=== PATIENT | male | born 1935 | race Two or more races ===

== ENCOUNTER 2017-07-30 11:04 | Emergency (ER) | payer MEDICARE, OTHER ==
[~2017-07-30] VITALS: Ht 165.1 cm; Wt 70.3 kg
--- NOTE | 2017-07-30 11:10 | NUR ---
Dr Marquez at the bedside for eval and exam.
[2017-07-30] MEDS ORDERED: NEBI10TA2 PO (11:24)
[2017-07-30] MEDS ORDERED: LEVO88TA5 PO (11:24)
[2017-07-30] MEDS ORDERED: AMLO5TAB2 PO (11:24)
[2017-07-30] MEDS ORDERED: NAPR500T6 PO (11:24)
[2017-07-30 11:41] LABS: BASOPHILS % (AUTO) 0.6 % (0.0-2.0); EOSINOPHILS # (AUTO) 0.2 K/uL (0.0-0.7); EOSINOPHILS % (AUTO) 3.4 % (0.0-7.0); HEMATOCRIT 34.2 % (36.7-47.1); HEMOGLOBIN 11.4 g/dL (12.5-16.3); LYMPHOCYTES # (AUTO) 1.5 K/uL (20.0-40.0); LYMPHOCYTES % (AUTO) 20.6 % (20.5-51.5); MEAN CORPUSCULAR HEMOGLOBIN 32.7 uug (23.8-33.4); MEAN CORPUSCULAR HGB CONC 34 g/dL (32.5-36.3); MEAN CORPUSCULAR VOLUME 97.5 fL (73.0-96.2); MONOCYTES # (AUTO) 0.6 K/uL (2.0-10.0); MONOCYTES % (AUTO) 8.6 % (0.0-11.0); NEUTROPHILS # (AUTO) 4.8 K/uL (1.8-8.9); NEUTROPHILS % (AUTO) 66.8 % (38.5-71.5); PLATELET COUNT (AUTO) 166 K/uL (152-348); WHITE BLOOD COUNT (AUTO) 7.2 K/uL (3.6-10.2)
[2017-07-30 11:46] LABS: CARBON DIOXIDE 22 mmol/L (21-32); CHLORIDE 104 mmol/L (98-107); CREATININE 2.1 mg/dL (0.6-1.3); GLUCOSE 115 mg/dL (74-106); POTASSIUM 4.2 mmol/L (3.5-5.1); UREA NITROGEN, BLOOD 25 mg/dL (7-18)
[2017-07-30 12:02] LABS: ALANINE AMINOTRANSFERASE 23 U/L (16-63); ALKALINE PHOSPHATASE 75 U/L (50-136); ASPARTATE AMINOTRANSFERASE 22 U/L (15-37); BILIRUBIN,DIRECT 0.1 mg/dL (0.0-0.2); BILIRUBIN,TOTAL 0.5 mg/dL (0.2-1.0); TOTAL PROTEIN, SERUM 7.6 g/dL (6.4-8.2)
--- NOTE | 2017-07-30 12:04 | NUR ---
Pt is resting in bed, family at the bedside. VSS.
[2017-07-30 12:22] VITALS: BP 124/67
--- NOTE | 2017-07-30 12:23 | NUR ---
Patient discharged to home in stable conditon. Written and verbal after care instructions given. Patient verbalizes understanding of instructions.
== END 2017-07-30 12:23 | disposition home or self-care (01) ==
LOC: ER 11:04
DX: M10.9 Gout, unspecified (principal); J06.9 Acute upper respiratory infection, unspecified; I70.0 Atherosclerosis of aorta; E03.9 Hypothyroidism, unspecified; M19.90 Unspecified osteoarthritis, unspecified site
CPT/HCPCS: 36415; 70030-TC; 71045; 85025; 87040; 87400; 93005; A4663

== ENCOUNTER 2022-11-29 11:35 | Inpatient (IN) | payer BC, MEDICARE, OTHER ==
[~2022-11-29] VITALS: Ht 165.1 cm; Wt 65.8 kg
[~2022-11-29 11:35] MED LIST: AMLO-212 PO; LEVO88TA5 PO; NAPR500T6 PO; NEBI10TA2 PO
[2022-11-29] MEDS ORDERED: LORA10TA61 PO (12:03)
[2022-11-29] MEDS ORDERED: NIFE30TA2 PO (12:03)
[2022-11-29] MEDS ORDERED: ALLO100T PO (12:03)
[2022-11-29] MEDS ORDERED: SIMV-49 PO (12:03)
[2022-11-29] MEDS ORDERED: MULT-1196 PO (12:03)
[2022-11-29] MEDS ORDERED: TELM80TA2 PO (12:03)
[2022-11-29] MEDS ORDERED: HYDR-501 PO (12:03)
[2022-11-29] MEDS ORDERED: NIFE30TA91 PO (12:03)
--- NOTE | 2022-11-29 12:22 | NUR ---
Pt seen by for bedside eval. UA sent to lab. Blood work sent to lab. Safety measures in place. Will continue to monitor.
--- NOTE | 2022-11-29 12:26 | NUR ---
Pt taken for CT.
[2022-11-29 12:28] LABS: HEMATOCRIT 30.6 % (36.7-47.1); MEAN CORPUSCULAR HEMOGLOBIN 33.3 uug (23.8-33.4); MEAN CORPUSCULAR VOLUME 98.9 fL (73.0-96.2); PLATELET COUNT (AUTO) 201 K/uL (152-348)
--- NOTE | 2022-11-29 12:42 | NUR ---
weld technician performed X-ray scans.
[2022-11-29 12:44] LABS: ALANINE AMINOTRANSFERASE 24 U/L (16-63); ALKALINE PHOSPHATASE 131 U/L (50-136); ASPARTATE AMINOTRANSFERASE 14 U/L (15-37); BILIRUBIN,DIRECT 0.1 mg/dL (0.0-0.2); BILIRUBIN,TOTAL 0.3 mg/dL (0.2-1.0); CARBON DIOXIDE 23 mmol/L (21-32); CHLORIDE 106 mmol/L (98-107); CREATININE 2.5 mg/dL (0.6-1.3); GLUCOSE 76 mg/dL (74-106); POTASSIUM 4.9 mmol/L (3.5-5.1); TOTAL PROTEIN, SERUM 7.3 g/dL (6.4-8.2); UREA NITROGEN, BLOOD 43 mg/dL (7-18)
--- NOTE | 2022-11-29 12:50 | NUR ---
Received Pt's daughter's (Aranza) phone number: . Safety measures in place. Will continue to monitor.
[2022-11-29 13:15] LABS: *BILIRUBIN,URIN NEGATIVE (NEGATIVE); *BLOOD, URINE NEGATIVE (NEGATIVE); *CLARITY,URINE CLEAR (CLEAR); *COLOR,URINE YELLOW (YELLOW); *KETONES,URINE NEGATIVE (NEGATIVE); *UROBILINOGEN,URINE 0.2 E.U./dl (NORMAL); LEUKOCYTE ESTERASE ,URINE NEGATIVE (NEGATIVE); NITRITE, URINE NEGATIVE (NEGATIVE); UGLUCOSE NEGATIVE (NEGATIVE)
--- NOTE | 2022-11-29 14:02 | NUR ---
Received call from 3rd floor gas inspectorBrien GOTTI: pt will be going to Rm 305. Accepting Nurse is Stacy. Will call Stacy in approximately 15-20 min for report.
[2022-11-29 14:05] LABS: BACTERIA,URINE FEW /HPF (NONE SEEN); RBC,URINE NONE SEEN /HPF (0-3); WBC,URINE NONE SEEN /HPF (0-3)
--- NOTE | 2022-11-29 14:20 | NUR ---
Gave report to Stacy (PULPER).
--- NOTE | 2022-11-29 14:26 | NUR ---
Pt has been admitted to 305 in stable condition. Pt arrived in safely. All belongings are with Pt. Stacy is aware of Pt's arrival.
[2022-11-29 14:50] VITALS: BP 138/53
--- NOTE | 2022-11-29 14:56 | NUR ---
87 YEAR OLD MALE RECEIVED TO ROOM 305 FOR HYPERTENSION AND RENAL INSUFFICIENCY.PT DENIES ANY PAIN SOB.CALL LIGHT WITH IN REACH ORIENT THE PT TO ROOM MD NOTIFIED FOR THE ADMISSION
[2022-11-29] MEDS ORDERED: ACETAMINOPHEN 325 MG TABLET PO PRN (16:15)
[2022-11-29] MEDS ORDERED: ONDANSETRON 4 MG/2 ML VIAL IV PRN (16:15)
[2022-11-29] MEDS ORDERED: TEMAZEPAM 7.5 MG CAPSULE PO PRN (16:15)
[2022-11-29] MEDS: IV 1/2NS 1000 ML 1,000 ML IV PRN (16:34)
--- NOTE | 2022-11-29 18:23 | NUR ---
pt seen by the md ,at this time family at bed side all needs met we will continue to monitors
--- NOTE | 2022-11-29 20:00 | NUR ---
Received patient lying in bed AAOx4. In no apparent distress. IV intact and patent. Will continue plan of care
[2022-11-29 20:18] VITALS: BP 127/57
[2022-11-29] MEDS ORDERED: SIMVASTATIN 40 MG TABLET PO SCH (21:00)
[2022-11-29] MEDS ORDERED: DOCUSATE SODIUM 100 MG CAPSULE PO SCH (21:00)
[2022-11-29 23:40] VITALS: BP 146/76
[2022-11-30 04:31] VITALS: BP 125/52
[2022-11-30 06:44] LABS: HEMATOCRIT 28.2 % (36.7-47.1); MEAN CORPUSCULAR HEMOGLOBIN 33.8 uug (23.8-33.4); MEAN CORPUSCULAR VOLUME 98.9 fL (73.0-96.2); PLATELET COUNT (AUTO) 181 K/uL (152-348)
[2022-11-30] MEDS ORDERED: LEVOTHYROXINE SODIUM 100 MCG TABLET PO SCH (07:00)
[2022-11-30] MEDS ORDERED: LEVOTHYROXINE SODIUM 88 MCG TABLET PO SCH (07:00)
[2022-11-30] MEDS ORDERED: PANTOPRAZOLE SODIUM 40 MG TABLET.DR PO SCH (07:00)
--- NOTE | 2022-11-30 07:00 | NUR ---
Patient expressed concerns about reasoning of hospitalization. Had difficulty sleeping. Needs attended to and met. Continue plan of care
[2022-11-30 07:12] LABS: IRON, SERUM 75 ug/dL (50-175)
[2022-11-30 07:19] LABS: ALANINE AMINOTRANSFERASE 25 U/L (16-63); ALKALINE PHOSPHATASE 119 U/L (50-136); ASPARTATE AMINOTRANSFERASE 23 U/L (15-37); BILIRUBIN,TOTAL 0.3 mg/dL (0.2-1.0); CARBON DIOXIDE 24 mmol/L (21-32); CHLORIDE 104 mmol/L (98-107); CHOLESTEROL 169 mg/dL (<200); CREATININE 2.3 mg/dL (0.6-1.3); GLUCOSE 90 mg/dL (74-106); HDL CHOLESTEROL 48 mg/dL (40-60); MAGNESIUM 2.1 mg/dL (1.8-2.4); PHOSPHOROUS 3.8 mg/dL (2.5-4.9); POTASSIUM 4.9 mmol/L (3.5-5.1); TOTAL PROTEIN, SERUM 6.9 g/dL (6.4-8.2); TRIGLYCERIDES 158 MG/DL (30-150); UREA NITROGEN, BLOOD 40 mg/dL (7-18)
[2022-11-30 07:29] LABS: THYROID STIMULATING HORMONE 7.083 mIU/mL (0.358-3.740)
[2022-11-30 08:52] VITALS: BP 137/58
[2022-11-30] MEDS ORDERED: Medication Not On Formulary EA (Multivit-Min/FA/Lycopen/Lutein (Centrum Silver Men Table PO SCH (09:00)
[2022-11-30] MEDS ORDERED: ALLOPURINOL 100 MG TABLET PO SCH (09:00)
[2022-11-30] MEDS ORDERED: NIFEdipine XL 30 MG TABSR PO SCH (09:00)
[2022-11-30] MEDS ORDERED: MULTIVIT, IRON, MIN NO. 8, FA TABLET PO SCH (09:00)
[2022-11-30] MEDS: IV 1/2NS 1000 ML 1,000 ML IV PRN (10:57)
[2022-11-30 11:17] VITALS: BP 126/58
[2022-11-30] MEDS ORDERED: LEVO100T10 PO (14:35)
--- NOTE | 2022-11-30 14:53 | NUR ---
MRI BRAIN W/O CONTRAST PENDING AUTH PER CM
[2022-11-30 15:02] VITALS: BP 124/75
[2022-11-30] MEDS ORDERED: DOCU-141 PO (15:20)
[2022-11-30] MEDS ORDERED: PANT40TA49 PO (15:20)
[2022-11-30] MEDS ORDERED: TEMA7.5C PO (15:20)
[2022-11-30] MEDS ORDERED: ACET325T53 PO (15:20)
[2022-11-30] MEDS ORDERED: ASPI-1101 PO (15:20)
--- NOTE | 2022-11-30 18:19 | NUR ---
pt is discharge. pt will go home with family. pt alert and oriented. family at bedside. ambulatory with steady gait. denies dizziness or pain. vitals wnl. exit care provided. iv access removed. educated family regarding new medication of the pt. wheelchair was offered but pt refused family aware. pt will walk going to the car. pt daughter german will drive pt home.
== END 2022-11-30 18:20 | disposition home or self-care (01) | DRG 683 ==
LOC: ER 11:35 → TRANSITION 13:48 → MEDSURG3 14:00 → TELE3 16:30
PROVIDERS: ADMIT Internal Medicine; ATTEND Internal Medicine
DX: N17.0 Acute kidney failure with tubular necrosis (principal); G45.9 Transient cerebral ischemic attack, unspecified; H53.121 Transient visual loss, right eye; I10 Essential (primary) hypertension; I69.398 Other sequelae of cerebral infarction; G93.89 Other specified disorders of brain; D53.9 Nutritional anemia, unspecified; E03.9 Hypothyroidism, unspecified; I13.10 Hypertensive heart and chronic kidney disease without heart failure, with stage 1 through stage 4 chronic kidney disease, or unspecified chronic kidney disease; N18.9 Chronic kidney disease, unspecified; H91.93 Unspecified hearing loss, bilateral; Z79.899 Other long term (current) drug therapy; E78.5 Hyperlipidemia, unspecified; N25.0 Renal osteodystrophy; Z20.822 Contact with and (suspected) exposure to COVID-19; I35.1 Nonrheumatic aortic (valve) insufficiency; I35.8 Other nonrheumatic aortic valve disorders; Z79.890 Hormone replacement therapy; Z96.21 Cochlear implant status; J30.2 Other seasonal allergic rhinitis
CPT/HCPCS: 36415; 70450; 71045; 76770; 83550; 83605; 83735; 84100; 84443; 84484; 84550; 85025; 87040; 93005; 93307; A4663; A6209; G0378; J8499

== ENCOUNTER 2023-01-01 14:17 | Inpatient (IN) | payer BC ==
[~2023-01-01] VITALS: Ht 160 cm; Wt 64.4 kg
[~2023-01-01 14:17] MED LIST changes: +ACET325T53 PO; +ALLO100T PO; -AMLO-212 PO; +ASPI-1101 PO; +DOCU-141 PO; +LEVO100T10 PO; -LEVO88TA5 PO; +MULT-1196 PO; -NAPR500T6 PO; -NEBI10TA2 PO; +NIFE30TA2 PO; +PANT40TA49 PO; +SIMV-49 PO; +TEMA7.5C PO
[2023-01-01 15:00] LABS: MEAN CORPUSCULAR HEMOGLOBIN 33.9 uug (23.8-33.4); PLATELET COUNT (AUTO) 200 K/uL (152-348)
[2023-01-01 15:09] LABS: CARBON DIOXIDE 21 mmol/L (21-32); CHLORIDE 103 mmol/L (98-107); CREATININE 3.3 mg/dL (0.6-1.3); POTASSIUM 5.2 mmol/L (3.5-5.1); UREA NITROGEN, BLOOD 65 mg/dL (7-18)
[2023-01-01 15:15] LABS: ALANINE AMINOTRANSFERASE 20 U/L (16-63); ALKALINE PHOSPHATASE 111 U/L (50-136); ASPARTATE AMINOTRANSFERASE 11 U/L (15-37); BILIRUBIN,DIRECT 0.1 mg/dL (0.0-0.2); BILIRUBIN,TOTAL 0.4 mg/dL (0.2-1.0); TOTAL PROTEIN, SERUM 7.6 g/dL (6.4-8.2)
[2023-01-01 15:21] LABS: *BILIRUBIN,URIN NEGATIVE (NEGATIVE); *CLARITY,URINE CLEAR (CLEAR); *COLOR,URINE YELLOW (YELLOW); *KETONES,URINE NEGATIVE (NEGATIVE); *UROBILINOGEN,URINE 0.2 E.U./dl (NORMAL); LEUKOCYTE ESTERASE ,URINE NEGATIVE (NEGATIVE); NITRITE, URINE NEGATIVE (NEGATIVE); PH,URINE 5.5 (5.0-8.0); UGLUCOSE NEGATIVE (NEGATIVE)
[2023-01-01 15:22] LABS: *BLOOD, URINE TRACE (NEGATIVE)
[2023-01-01] MEDS ORDERED: IV NORMAL SALINE 1000 ML BAG IV ONE (16:15)
[2023-01-01] MEDS ORDERED: SODIUM POLYSTYRENE SULFONATE 15 G/60 ML LIQUID UDC PO ONE (17:15)
[2023-01-01] MEDS ORDERED: SODIUM POLYSTYRENE SULFONATE 15 G/60 ML LIQUID UDC ONE (17:21)
[2023-01-01] MEDS ORDERED: SIMVASTATIN 40 MG TABLET PO SCH (18:00)
[2023-01-01] MEDS ORDERED: MAGNESIUM HYDROXIDE 30 ML LIQUID UDC PO PRN (18:00)
[2023-01-01] MEDS ORDERED: ONDANSETRON 4 MG/2 ML VIAL IV PRN (18:00)
[2023-01-01] MEDS ORDERED: REMEDY ESSENTIAL ZINC PASTE 113 GM TP PRN (18:00)
[2023-01-01] MEDS ORDERED: ACETAMINOPHEN 325 MG TABLET PO PRN (18:00)
--- NOTE | 2023-01-01 19:15 | NUR ---
Pt is noted in bed responsive as report is received from the off going nurse that Pt was brought in by family C/O hypotension with BP in the 88/54 and weakness x3days. Pt care contiune as he is been admitted to MED/SURG Room 307, report will be given shortly.
[2023-01-01 20:11] LABS: BACTERIA,URINE NONE SEEN /HPF (NONE SEEN); SQUAMOUS EPITHELIAL CELL,UR FEW /HPF (NONE SEEN); WBC,URINE 0-3 /HPF (0-3)
--- NOTE | 2023-01-01 20:46 | NUR ---
Pt care continue as report is given to the 3RD FLOOR Nurse Komal as pt is been admitted to 3RD Floor Room 307 under the care off DR. Holbrook.
--- NOTE | 2023-01-01 21:18 | NUR ---
The patient, DENNY PATTERSON, 87 y/o, M admitted by TERRY MURDOCK [employer], was given written information regarding hospital policies, unit procedures and contact persons. Valuables were checked and [].BIB BED A/A/O XS4, NO DISTRESS NOTED
--- NOTE | 2023-01-01 21:20 | NUR ---
Pt care continue as he is noted off the unti to the 3rd Floor Room 307.
[2023-01-01] MEDS: DOCUSATE SODIUM 100 MG CAPSULE PO SCH (22:14)
[2023-01-01] MEDS: HEPARIN SODIUM,PORCINE 5,000 UNITS/ML VIAL SQ SCH (22:16)
[2023-01-01] MEDS: IV NS 1000 ML 1,000 ML IV PRN (22:26)
[2023-01-01 23:10] VITALS: BP 107/50; TEMP 98.2; O2SAT 98
[2023-01-02 04:52] VITALS: BP 155/69; TEMP 98
[2023-01-02 06:29] LABS: HEMATOCRIT 25.2 % (36.7-47.1); MEAN CORPUSCULAR HEMOGLOBIN 34.1 uug (23.8-33.4); PLATELET COUNT (AUTO) 171 K/uL (152-348)
[2023-01-02 07:08] LABS: CARBON DIOXIDE 21 mmol/L (21-32); CHLORIDE 109 mmol/L (98-107); CREATININE 2.8 mg/dL (0.6-1.3); PHOSPHOROUS 5.3 mg/dL (2.5-4.9); UREA NITROGEN, BLOOD 58 mg/dL (7-18)
--- NOTE | 2023-01-02 07:28 | NUR ---
REPORT GIVEN TO DAY RN
--- NOTE | 2023-01-02 07:30 | NUR ---
RECEIVED PATIENT AWAKE ALERT AND ABLE TO MAKE SIMPLE NEEDS KNOWN DENIES DISCOMFORTS REMAIN ON IVF ORDERED WITH NO S/S OF INFILTERATION ON SITE CALL LIGHTS AND PERSONAL BELONGINGS ARE WITHIN EASY REACH ASSISTED TO THE BATHROOM HOLDING ONTO THE IV POLE WITH SLOW STEADY GAIT WILL CONTINUE TO OBSERVE.
[2023-01-02] MEDS: ASPIRIN EC 81 MG TABLET.DR PO SCH (08:23)
[2023-01-02] MEDS: PANTOPRAZOLE SODIUM 40 MG VIAL IV SCH (08:24)
[2023-01-02] MEDS: MULTIVIT, IRON, MIN NO. 8, FA TABLET PO SCH (08:24)
[2023-01-02] MEDS: HEPARIN SODIUM,PORCINE 5,000 UNITS/ML VIAL SQ SCH ×2 (08:25→20:59)
--- NOTE | 2023-01-02 08:58 | NUR ---
PATIENT SEEN AND EXAMINED BY DR BOGGS WITH NEW ORDERS AND NOTED.
[2023-01-02] MEDS ORDERED: Medication Not On Formulary EA (Multivit-Min/FA/Lycopen/Lutein (Centrum Silver Men Table PO SCH (09:00)
[2023-01-02] MEDS ORDERED: LEVOTHYROXINE SODIUM 100 MCG TABLET PO SCH (09:00)
[2023-01-02 11:35] VITALS: BP 113/53; TEMP 97.8; O2SAT 100
[2023-01-02] MEDS: IV NS 1000 ML 1,000 ML IV PRN (12:10)
--- NOTE | 2023-01-02 13:00 | NUR ---
US KIDNEY DONE ORDERED AND NEG AT THIS TIME
[2023-01-02] MEDS ORDERED: ATOR40TA PO (13:17)
[2023-01-02] MEDS ORDERED: TELM80TA2 PO (13:17)
[2023-01-02 16:40] VITALS: BP 138/52; TEMP 97.9; O2SAT 97
--- NOTE | 2023-01-02 18:00 | NUR ---
PATIENT AND HER SON AND AT THE BEDSIDE AT THIS TIME HE IS AWARE OF NEED FOR URINE SPECIMEN STILL AWAITING FOR SPECIMEN PATIENT HAS GONE TO THE BATHROOM BY HIM SELF AND FORGOT TO COLLECT THE SPECIMEN WILL CONTINUE TO OBSERVE.
[2023-01-02 20:11] VITALS: BP 143/63; TEMP 97.7; O2SAT 98
[2023-01-02] MEDS: ATORVASTATIN 40 MG TABLET PO SCH (20:58)
[2023-01-02] MEDS: DOCUSATE SODIUM 100 MG CAPSULE PO SCH (20:59)
[2023-01-02 22:39] LABS: *BILIRUBIN,URIN NEGATIVE (NEGATIVE); *BLOOD, URINE NEGATIVE (NEGATIVE); *CLARITY,URINE CLEAR (CLEAR); *COLOR,URINE YELLOW (YELLOW); *KETONES,URINE NEGATIVE (NEGATIVE); *UROBILINOGEN,URINE 0.2 E.U./dl (NORMAL); LEUKOCYTE ESTERASE ,URINE NEGATIVE (NEGATIVE); NITRITE, URINE NEGATIVE (NEGATIVE); PH,URINE 5.5 (5.0-8.0); UGLUCOSE NEGATIVE (NEGATIVE)
[2023-01-02 23:02] LABS: *URINE TOTAL PROTEIN RANDOM 24.4 mg/dL (<150/24HR)
[2023-01-03] MEDS: IV NS 1000 ML 1,000 ML IV PRN ×2 (01:36→14:24)
[2023-01-03 04:10] VITALS: BP 159/70; TEMP 97.6; O2SAT 98
[2023-01-03] MEDS: LEVOTHYROXINE SODIUM 100 MCG TABLET PO SCH (06:23)
[2023-01-03 06:52] LABS: HEMATOCRIT 24.5 % (36.7-47.1); MEAN CORPUSCULAR HEMOGLOBIN 33.8 uug (23.8-33.4); MEAN CORPUSCULAR VOLUME 99.7 fL (73.0-96.2); PLATELET COUNT (AUTO) 166 K/uL (152-348)
--- NOTE | 2023-01-03 07:15 | NUR ---
RESTING IN BED AWAKE ALERT AND COOPERATIVE HE IS FORGETFUL AT THIS TIME ABLE TO MAKE SIMPLE NEEDS KNOWN REMAIN ON IVF ORDERED WITH NO S/S OF INFILTERATION AT THIS TIME CALL LIGHTS AND PERSOANL BELONGINGS ARE WITHIN EASY REACH WILL CONTINUE TO OBSERVE.
[2023-01-03 07:23] LABS: ALANINE AMINOTRANSFERASE 21 U/L (16-63); ALKALINE PHOSPHATASE 90 U/L (50-136); ASPARTATE AMINOTRANSFERASE 16 U/L (15-37); BILIRUBIN,TOTAL 0.2 mg/dL (0.2-1.0); CARBON DIOXIDE 22 mmol/L (21-32); CHLORIDE 111 mmol/L (98-107); CREATININE 2.3 mg/dL (0.6-1.3); MAGNESIUM 1.8 mg/dL (1.8-2.4); POTASSIUM 4.9 mmol/L (3.5-5.1); TOTAL PROTEIN, SERUM 6.5 g/dL (6.4-8.2); UREA NITROGEN, BLOOD 46 mg/dL (7-18)
[2023-01-03 07:38] LABS: CREATINE KINASE, TOTAL 114 U/L (39-308)
[2023-01-03] MEDS: HEPARIN SODIUM,PORCINE 5,000 UNITS/ML VIAL SQ SCH ×2 (08:38→20:50)
[2023-01-03] MEDS: PANTOPRAZOLE SODIUM 40 MG VIAL IV SCH (08:39)
[2023-01-03] MEDS: MULTIVIT, IRON, MIN NO. 8, FA TABLET PO SCH (08:39)
[2023-01-03] MEDS: ASPIRIN EC 81 MG TABLET.DR PO SCH (08:39)
--- NOTE | 2023-01-03 10:14 | NUR ---
PATIENT SEEN AND EXAMINED BY KENNETH SCHERER WITH NEW ORDERS AND NOTED.
[2023-01-03 11:19] VITALS: BP 125/86; TEMP 98.3; O2SAT 99
[2023-01-03 16:58] VITALS: BP 149/64; TEMP 98.4; O2SAT 98
--- NOTE | 2023-01-03 18:00 | NUR ---
RESTING COMFORTABLY WITH IVF IN PROGRESS ORDERED DENIES DISCOMFORTS FAMILY AT BEDSIDE AT THIS TIME WILL CONTINUE TO OBSERVE.
--- NOTE | 2023-01-03 19:35 | NUR ---
Patient awake, speak Sami and hard of hearing, but able to understand little Croatian, staff speak Sami able to communicated patient needs, no complain of pain at this time, assist with toileting, cont to monitor.
[2023-01-03 20:00] VITALS: BP 127/50; TEMP 98; O2SAT 99
[2023-01-03] MEDS: DOCUSATE SODIUM 100 MG CAPSULE PO SCH (20:45)
[2023-01-03] MEDS: ATORVASTATIN 40 MG TABLET PO SCH (20:45)
[2023-01-04] VITALS (7 sets, daily range): BP systolic 124–165; BP diastolic 50–68; TEMP 97.6–98.7; O2SAT 98–100
[2023-01-04] MEDS: IV NS 1000 ML 1,000 ML IV PRN (00:37)
[2023-01-04] MEDS: LEVOTHYROXINE SODIUM 100 MCG TABLET PO SCH (06:07)
[2023-01-04 06:19] LABS: HEMATOCRIT 23.5 % (36.7-47.1); MEAN CORPUSCULAR HEMOGLOBIN 34.2 uug (23.8-33.4); MEAN CORPUSCULAR VOLUME 100.4 fL (73.0-96.2); PLATELET COUNT (AUTO) 160 K/uL (152-348)
[2023-01-04 06:32] LABS: CARBON DIOXIDE 22 mmol/L (21-32); CHLORIDE 111 mmol/L (98-107); CREATININE 2.2 mg/dL (0.6-1.3); MAGNESIUM 1.9 mg/dL (1.8-2.4); PHOSPHOROUS 3.7 mg/dL (2.5-4.9); POTASSIUM 5.1 mmol/L (3.5-5.1); UREA NITROGEN, BLOOD 40 mg/dL (7-18)
[2023-01-04 06:35] LABS: IRON, SERUM 64 ug/dL (50-175)
--- NOTE | 2023-01-04 06:41 | NUR ---
Patient awake, no complain of pain at this time, ambulate to toilet for bladder eliminations, cont to monitor.
[2023-01-04 06:59] LABS: FERRITIN 187 ng/mL (26-388)
[2023-01-04] MEDS: PANTOPRAZOLE SODIUM 40 MG VIAL IV SCH (08:20)
[2023-01-04] MEDS: ASPIRIN EC 81 MG TABLET.DR PO SCH (08:20)
[2023-01-04] MEDS: MULTIVIT, IRON, MIN NO. 8, FA TABLET PO SCH (08:20)
[2023-01-04] MEDS: HEPARIN SODIUM,PORCINE 5,000 UNITS/ML VIAL SQ SCH ×2 (08:24→20:53)
--- NOTE | 2023-01-04 13:36 | NUR ---
Received patient awake and alert, standing on the bedside, ambulating. In no acute distress, no SOB Seen and examined by Nery Hamilton HAZMAT TRUCK DRIVER with orders made and carried out Vital signs taken and recorded Due medications given Stool specimen submitted to laboratory Observed accordingly, needs attended
[2023-01-04] MEDS ORDERED: EPOETIN ALFA 10,000 UNITS/ML VIAL SQ ONE (16:30)
[2023-01-04] MEDS ORDERED: EPOETIN ALFA-EPBX 10,000 UNIT/ML VIAL SQ ONE ×2 (17:00)
[2023-01-04 17:40] LABS: *OCCULT BLOOD STOOL NEGATIVE (NEGATIVE)
[2023-01-04] MEDS: LOSARTAN POTASSIUM 50 MG TABLET PO SCH (17:50)
--- NOTE | 2023-01-04 19:35 | NUR ---
Received patient awake , ambulate to toilet with steady gait, no sob no chest pain, Patient alert oriented, no confusion noted, voiding well, no complain of pain, cont to monitor.
--- NOTE | 2023-01-04 20:00 | NUR ---
BP stable 148/50,hr 58 so headaches, no nausea no vomiting, cont to monitor.
[2023-01-04] MEDS: DOCUSATE SODIUM 100 MG CAPSULE PO SCH (20:51)
[2023-01-04] MEDS: ATORVASTATIN 40 MG TABLET PO SCH (20:51)
--- NOTE | 2023-01-05 | NUR ---
BP 125/48. hr 90, no complain of pain, alert oriented, ambulate with min assist.
[2023-01-05 04:08] VITALS: BP 143/57; TEMP 97.8; O2SAT 98
[2023-01-05 05:08] LABS: A/G RATIO 1.3 (0.7-1.7); ALBUMIN 3.3 g/dL (2.9-4.4); ALPHA-1-GLOBULIN 0.2 g/dL (0.0-0.4); ALPHA-2-GLOBULIN 0.6 g/dL (0.4-1.0); BETA GLOBULIN 0.9 g/dL (0.7-1.3); GLOBULIN, TOTAL 2.6 g/dL (2.2-3.9); M-SPIKE Not Observed g/dL (Not Observed)
[2023-01-05] MEDS: LEVOTHYROXINE SODIUM 100 MCG TABLET PO SCH (06:13)
--- NOTE | 2023-01-05 06:44 | NUR ---
Patient awake ambulate to toilet with steady gain, min assist, BP 143/57, no complain of pain, no sob no chest pain, cont to monitor.
[2023-01-05] MEDS ORDERED: PANTOPRAZOLE SODIUM 40 MG TABLET.DR PO SCH (07:00)
[2023-01-05 07:05] LABS: HEMATOCRIT 25.4 % (36.7-47.1); MEAN CORPUSCULAR HEMOGLOBIN 34.1 uug (23.8-33.4); MEAN CORPUSCULAR VOLUME 100.4 fL (73.0-96.2); PLATELET COUNT (AUTO) 181 K/uL (152-348)
[2023-01-05 07:46] LABS: CREATININE 2.2 mg/dL (0.6-1.3)
[2023-01-05 07:59] LABS: ALKALINE PHOSPHATASE 94 U/L (50-136); BILIRUBIN,TOTAL 0.4 mg/dL (0.2-1.0); CARBON DIOXIDE 23 mmol/L (21-32); CHLORIDE 110 mmol/L (98-107); PHOSPHOROUS 3.7 mg/dL (2.5-4.9); POTASSIUM 4.6 mmol/L (3.5-5.1); UREA NITROGEN, BLOOD 35 mg/dL (7-18)
[2023-01-05 08:00] VITALS: BP 164/70; TEMP 98.1; O2SAT 100
[2023-01-05 08:00] LABS: ALANINE AMINOTRANSFERASE 23 U/L (16-63); ASPARTATE AMINOTRANSFERASE 11 U/L (15-37)
--- NOTE | 2023-01-05 08:00 | NUR ---
Received patient lying in bed awake, alert and oriented. No acute signs of distress, no SOB IV site at left fore arm g.20. Vital signs taken and recorded. Due medications given and recorded Observed accordingly, needs attended
[2023-01-05 08:28] LABS: MAGNESIUM 1.9 mg/dL (1.8-2.4); TOTAL PROTEIN, SERUM 6.8 g/dL (6.4-8.2)
[2023-01-05] MEDS: MULTIVIT, IRON, MIN NO. 8, FA TABLET PO SCH (08:37)
[2023-01-05] MEDS: ASPIRIN EC 81 MG TABLET.DR PO SCH (08:38)
[2023-01-05] MEDS: LOSARTAN POTASSIUM 50 MG TABLET PO SCH (08:38)
[2023-01-05] MEDS: HEPARIN SODIUM,PORCINE 5,000 UNITS/ML VIAL SQ SCH (08:40)
[2023-01-05] MEDS ORDERED: Medication Not On Formulary EA (Telmisartan (Micardis) 80 MG) PO SCH (09:00)
[2023-01-05] MEDS ORDERED: AMLODIPINE 2.5 MG TABLET PO SCH (09:00)
[2023-01-05 10:00] VITALS: BP 145/63; TEMP 98.1; O2SAT 100
[2023-01-05 11:55] VITALS: BP 148/61; TEMP 98.3; O2SAT 98
--- NOTE | 2023-01-05 12:00 | NUR ---
Seen and examined by Nery Hamilton CLOUD PHYSICIST with order for discharge Prepared all papers for discharge, papers signed for discharge Removed IV catheter, clean and intact Vital signs taken and recorded All questions answered, attended
[2023-01-05] MEDS ORDERED: AMLO2.5T4 PO (13:11)
[2023-01-05] MEDS ORDERED: ATOR40TA PO (13:11)
[2023-01-05] MEDS ORDERED: LEVO100T10 PO (13:11)
--- NOTE | 2023-01-05 14:30 | NUR ---
Assisted patient for discharge together with the and daughter ambulatory Stable at this time no complain Discharge at 1430
[2023-01-06 12:07] LABS: ALBUMIN 3.3 g/dL (2.9-4.4); ALPHA-1-GLOBULIN 0.3 g/dL (0.0-0.4); ALPHA-2-GLOBULIN 0.8 g/dL (0.4-1.0); GAMMA GLOBULIN 1.3 g/dL (0.4-1.8); GLOBULIN, TOTAL 3.3 g/dL (2.2-3.9); M-SPIKE Not Observed g/dL (Not Observed)
== END 2023-01-05 14:30 | disposition home or self-care (01) | DRG 683 ==
LOC: ER 14:22 → MEDSURG3 20:36
PROVIDERS: ADMIT Nurse Practitioner Acute Care; ATTEND Nurse Practitioner Acute Care
DX: N17.0 Acute kidney failure with tubular necrosis (principal); E44.1 Mild protein-calorie malnutrition; E87.5 Hyperkalemia; N18.4 Chronic kidney disease, stage 4 (severe); D53.9 Nutritional anemia, unspecified; E03.9 Hypothyroidism, unspecified; D63.1 Anemia in chronic kidney disease; E88.09 Other disorders of plasma-protein metabolism, not elsewhere classified; M19.90 Unspecified osteoarthritis, unspecified site; I95.9 Hypotension, unspecified; I12.9 Hypertensive chronic kidney disease with stage 1 through stage 4 chronic kidney disease, or unspecified chronic kidney disease; H91.90 Unspecified hearing loss, unspecified ear; Z79.82 Long term (current) use of aspirin; Z68.25 Body mass index [BMI] 25.0-25.9, adult
CPT/HCPCS: 36415; 71045; 76770; 83550; 83605; 83735; 83970; 84100; 84155; 84165; 84300; 84443; 85025; 87040; 93005; A4663; C9113; G0378; J0885; J1644; J7040